=== PATIENT | female | born 1990 | race African-American/Black ===

== ENCOUNTER 2017-01-27 18:37 | Emergency (ER) | payer OTHER ==
[~2017-01-27 18:37] MED LIST: AMOXICILLIN PO; CIPRO PO; DOXYCYCLINE PO; FLEXERIL10 M1 PO; HYDROCODONE-APA1 T56 PO; MACROBID 100 M100 MG PO; PHENERGAN PO; PRENATAL VITAMI1 TA3 PO; PRENATAL1 TA1; PYRIDIUM PO; ZANTAC PO; ZITHROMAX PO
[2017-01-27 21:33] LABS: URINE APPEARANCE CLOUDY; URINE BILIRUBIN NEG (NEG); URINE BLOOD 3+ (NEG); URINE COLOR ORANGE; URINE GLUCOSE NEG (NEG); URINE KETONE NEG (NEG); URINE LEUKOCYTE ESTERASE TRACE (NEG); URINE NITRATE NEG (NEG); URINE PROTEIN 1+ (NEG); URINE SPECIFIC GRAVITY 1.021 (1.003-1.035); URINE UROBILINOGEN 0.2 MG/DL (NEG)
[2017-01-27 21:37] LABS: CULTURE INDICATED? YES; URBCS1 AUWI INNUM /[HPF] (0-2); URINE BACTERIA AUWI NEG (NEGATIVE); URINE SQUAMOUS EPITHELIAL CELL NONE SEEN /[HPF]
[2017-01-30 15:44] LABS: CHLAMYDIA TRACH Not Detected (Not Detected); N GONOR Not Detected (Not Detected)
== END 2017-01-27 23:46 | disposition home or self-care (01) ==
LOC: CED 18:37 → CFTX 18:37
PROVIDERS: Nurse Practitioner Family
DX: N94.6 Dysmenorrhea, unspecified (principal); R35.0 Frequency of micturition; F41.8 Other specified anxiety disorders; K21.9 Gastro-esophageal reflux disease without esophagitis; Z98.890 Other specified postprocedural states
CPT/HCPCS: 81003; 84703; 87086; 87491; 87591; 87808; 87905; 99284